=== PATIENT | female | born 1945 | race Caucasian/White ===

== ENCOUNTER → 2017-01-03 | Outpatient (CLI) | payer OTHER ==
--- NOTE | ~2017-01-03 | EKG ---
[address] [address] ELECTROCARDIOGRAM REPORT Name: JODIE BIRCH [id number] Admission: 01/03/17 Attend Phys: Janie Horne MD Discharge: Date of : 47 Report #: [id number] THIS REPORT FOR: //name// [facility] Test Date: 2017-01-03 Test Time: 10:13:08 Pat Name: JODIE BIRCH Department: Room: Gender: F Welt Stitcher: [place]errat : 1945 Requested By: Janie Horne Order Number: [id number] MD: Zhao Berg Measurements Intervals [place] Rate: 64 P: 69 IN: 191 QRS: -37 QRSD: 137 T: 92 QT: 442 QTc: 456 Interpretive Statements Sinus rhythm Occasional PVCs Left [place] deviation NS ST/T wave changes No previous ECG available for comparison Electronically Signed On 01-04-2017 12:49:00 CDT by Zhao Berg [email or web address] <ELECTRONICALLY SIGNED> By: Zhao Berg MD 01/04/17 1249 [id number] [id number] Zhao Berg MD /EDI
== END ==
LOC: CV 09:40
DX: Z01.818 Encounter for other preprocedural examination (principal)